=== PATIENT | female | born 1940 | race Caucasian/White ===

== ENCOUNTER 2020-05-09 11:22 | Emergency (ER) | payer MEDICARE ==
[2020-05-09 12:08] LABS: HEMOGLOBIN 15.3 gm/dl (12.3-15.3); RED BLOOD COUNT 5.19 M/UL (4.00-5.10); WHITE BLOOD COUNT 4.8 K/UL (4.5-11.0)
[2020-05-09 12:32] LABS: BUN/CREATININE RATIO 10 (0-10)
[2020-05-09] MEDS ORDERED: ZYRTEC10 MG PO (13:37)
[2020-05-09] MEDS ORDERED: AFRIN15 M1 (13:37)
== END 2020-05-09 14:04 | disposition home or self-care (01) ==
LOC: ER1 11:22
PROVIDERS: Physician Assistant
DX: J30.2 Other seasonal allergic rhinitis (principal); R00.1 Bradycardia, unspecified; I10 Essential (primary) hypertension; Z20.822 Contact with and (suspected) exposure to COVID-19
CPT/HCPCS: 0240U; 80053; 82550; 82553; 83874; 84439; 84443; 84484; 85025; 93005; 99283

== ENCOUNTER → 2020-07-15 | Outpatient (CLI) | payer MEDICARE ==
[~2020-07-15] MED LIST: AFRIN15 M1; ZYRTEC10 MG PO
== END ==
LOC: ECHO 11:00
DX: I49.3 Ventricular premature depolarization (principal); I08.1 Rheumatic disorders of both mitral and tricuspid valves; I27.20 Pulmonary hypertension, unspecified
CPT/HCPCS: ECHO; 93306